=== PATIENT | male | born 1990 | race Caucasian/White ===

== ENCOUNTER 2016-05-29 17:28 | Emergency (ER) | payer MEDICAID ==
[~2016-05-29] VITALS: Ht 177.8 cm; Wt 105.0 kg
[~2016-05-29 17:28] MED LIST: CLON0.5T PO; CLON1TAB PO; LISI-167 PO; SERT25TA PO; SERT25TA3 PO
[2016-05-29] MEDS ORDERED: SODIUM CHLORIDE 0.9% 1,000ML IVBOLUS ONE (18:00)
[2016-05-29 18:01] LABS: HEMOGLOBIN 15.4 g/dL (13.7-18.0)
[2016-05-29 18:12] LABS: BLOOD UREA NITROGEN 12 mg/dL (7-18)
[2016-05-29 18:58] LABS: DAU SCREEN DISCLAIMER
[2016-05-29 19:28] VITALS: BP 137/67
== END 2016-05-29 19:30 | disposition home or self-care (01) ==
LOC: ED 17:37
DX: R53.1 Weakness (principal); F32.9 Major depressive disorder, single episode, unspecified; I10 Essential (primary) hypertension; F41.9 Anxiety disorder, unspecified; Z79.899 Other long term (current) drug therapy
CPT/HCPCS: 36415; 71010; 80048; 80307; 81003; 82040; 85025; 93005

== ENCOUNTER 2016-07-08 14:28 | Emergency (ER) | payer MEDICAID ==
[~2016-07-08] VITALS: Ht 177.8 cm; Wt 135.2 kg
[2016-07-08] MEDS ORDERED: SODIUM CHLORIDE 0.9% 1,000ML IVBOLUS ONE (15:00)
[2016-07-08] MEDS ORDERED: SODIUM CHLORIDE FLUSH 10ML SYR IVF ONE (15:00)
[2016-07-08 15:23] LABS: BLOOD UREA NITROGEN 19 mg/dL (7-18)
[2016-07-08 16:51] VITALS: BP 123/58
== END 2016-07-08 16:53 | disposition home or self-care (01) ==
LOC: ED 16:29
DX: R55 Syncope and collapse (principal); I10 Essential (primary) hypertension; Z88.6 Allergy status to analgesic agent; Z79.899 Other long term (current) drug therapy
CPT/HCPCS: 36415; 80048; 82040; 84484; 85025; 93005; 96360; 96361; 99285; J7030

== ENCOUNTER 2019-01-14 11:01 | Emergency (ER) | payer SELFPAY ==
[~2019-01-14] VITALS: Ht 177.8 cm; Wt 130.8 kg
[2019-01-14 11:16] VITALS: BP 149/89
[2019-01-14] MEDS ORDERED: DEXAMETHASONE 4 MG TABLET PO ONE (11:30)
[2019-01-14] MEDS ORDERED: DEXAMETHASONE 4 MG TABLET ONE (11:41)
[2019-01-14 12:13] LABS: RAPID INFLUENZA A Negative (Negative); RAPID INFLUENZA B Negative (Negative)
== END 2019-01-14 13:24 | disposition home or self-care (01) ==
LOC: ED 12:52
DX: J03.00 Acute streptococcal tonsillitis, unspecified (principal); F41.1 Generalized anxiety disorder; F32.9 Major depressive disorder, single episode, unspecified; I10 Essential (primary) hypertension; Z88.6 Allergy status to analgesic agent
CPT/HCPCS: 87081; 87400; 87880; 99283

== ENCOUNTER 2019-01-15 19:59 | Emergency (ER) | payer OTHER ==
[~2019-01-15] VITALS: Ht 175.3 cm; Wt 133.6 kg
[2019-01-15 21:20] VITALS: BP 130/69
== END 2019-01-15 21:23 | disposition home or self-care (01) ==
LOC: ED 20:30
DX: R55 Syncope and collapse (principal); I10 Essential (primary) hypertension
CPT/HCPCS: 93005; 99283

== ENCOUNTER 2019-02-07 14:23 | Emergency (ER) | payer SELFPAY ==
[~2019-02-07] VITALS: Ht 175.3 cm; Wt 127.8 kg
[2019-02-07 14:26] VITALS: BP 134/86
== END 2019-02-07 16:08 | disposition home or self-care (01) ==
LOC: ED 15:27
DX: J06.9 Acute upper respiratory infection, unspecified (principal); I10 Essential (primary) hypertension
CPT/HCPCS: 71046; 87081; 87880; 99284

== ENCOUNTER 2019-11-28 14:29 | Emergency (ER) | payer OTHER ==
[~2019-11-28] VITALS: Ht 177.8 cm; Wt 143.8 kg
[2019-11-28 14:49] VITALS: BP 148/108
--- NOTE | 2019-11-28 15:15 | NUR ---
29 YO MALE WITH C/O SORE THROAT/COUGHING AT NIGHT, BODY ACHES LAST NOC BUT HAS SINCE RESOLVED. RESPIRATIONS EVEN AND UNLABORED. LUNG SOUNDS CLEAR THROUGHOUT. ERP IN ROOM FOR TU
[2019-11-28] MEDS ORDERED: IBUPROFEN 200 MG TABLET ONE (15:24)
[2019-11-28] MEDS ORDERED: IBUPROFEN 200 MG TABLET PO ONE (15:30)
--- NOTE | 2019-11-28 15:50 | NUR ---
PATIENT BACK FROM XRAY
== END 2019-11-28 16:48 | disposition home or self-care (01) ==
LOC: ED 15:30
DX: B34.9 Viral infection, unspecified (principal); R00.0 Tachycardia, unspecified; I10 Essential (primary) hypertension
CPT/HCPCS: 71046; 99283

== ENCOUNTER 2019-12-29 09:39 | Emergency (ER) | payer OTHER ==
[~2019-12-29] VITALS: Ht 177.8 cm; Wt 144.5 kg
[2019-12-29 09:51] VITALS: BP 147/88
== END 2019-12-29 10:58 | disposition home or self-care (01) ==
LOC: ED 10:42
DX: R50.9 Fever, unspecified (principal); Z20.828 Contact with and (suspected) exposure to other viral communicable diseases; R05 Cough; M79.10 Myalgia, unspecified site; I10 Essential (primary) hypertension
CPT/HCPCS: 36415; 87635; 93005; 99284

== ENCOUNTER 2020-05-03 13:48 | Emergency (ER) | payer OTHER ==
[~2020-05-03] VITALS: Ht 180.3 cm; Wt 149.3 kg
[~2020-05-03 13:48] MED LIST changes: +SERT-331 PO; -SERT25TA3 PO
--- NOTE | 2020-05-03 16:20 | NUR ---
PT RESWABBED FOR COVID. PT D/C WITH D/C SUMMARY AND SCRIPTS. ALL QUESTIONS ANSWERED. PT VERBALIZES NEED TO ISOLATE PENDING COVID-19 RESULTS. PT AMBULATES TO REGISTRATION DESK WITH STEADY GAIT FOR D/C HOME.
[2020-05-03 16:23] VITALS: BP 148/92
== END 2020-05-03 16:25 | disposition home or self-care (01) ==
LOC: ED 14:44
DX: J18.9 Pneumonia, unspecified organism (principal); Z20.822 Contact with and (suspected) exposure to COVID-19; B34.9 Viral infection, unspecified; R50.9 Fever, unspecified; R05 Cough; J02.9 Acute pharyngitis, unspecified; M79.10 Myalgia, unspecified site; R19.7 Diarrhea, unspecified; I10 Essential (primary) hypertension; E66.9 Obesity, unspecified; Z68.42 Body mass index [BMI] 45.0-49.9, adult
CPT/HCPCS: 71045; 93005; 99285; U0003

== ENCOUNTER 2020-11-28 15:19 | Emergency (ER) | payer OTHER ==
[~2020-11-28] VITALS: Ht 177.8 cm; Wt 147.0 kg
--- NOTE | 2020-11-28 16:14 | NUR ---
PT PRESENTS TO ED WITH C/O COVID X1 WEEK. PT STATES LOSS OF TASTE/SMELL AND DIARRHEA. PT DENIES COVID VACCINE. VSS, RESPS EVEN AND UNLABORED, NADN. ENID LANTIGUA AT BEDSIDE FOR EVAL
[2020-11-28 17:02] VITALS: BP 155/93
--- NOTE | 2020-11-28 17:03 | NUR ---
pt resting in [facility] nad[facility]. awaiting lab results and dispo.
--- NOTE | 2020-11-28 17:44 | NUR ---
pt educatde on dc instrucitons for sewlf and son, verbalized udnerstanding. ambulatory to dc desk with steady gait carrying son
== END 2020-11-28 17:46 | disposition home or self-care (01) ==
LOC: ED 17:40
DX: J06.9 Acute upper respiratory infection, unspecified (principal); Z20.822 Contact with and (suspected) exposure to COVID-19; R06.02 Shortness of breath; R50.9 Fever, unspecified; R00.0 Tachycardia, unspecified; I10 Essential (primary) hypertension
CPT/HCPCS: 71045; 99284; U0003; U0005